=== PATIENT | female | born 1990 | race Caucasian/White ===

== ENCOUNTER 2019-04-09 16:23 | Outpatient (REF) | payer MEDICAID, SELFPAY ==
[2019-04-09 17:15] LABS: Abs Immature Grans 0.03 k/cumm (0.0-0.09); Absolute Basophil Count 0.01 k/cumm (0.0-0.2); Absolute Eosinophil Count 0.19 k/cumm (0.0-0.7); Absolute Lymphocyte Count 2.73 k/cumm (1.2-3.4); Absolute Monocyte Count 0.65 k/cumm (0.11-0.7); Absolute Neutrophil Count 4.21 k/cumm (1.2-6.7); Basophils % 0.1; Eosinophils % 2.4; HGB 13.3 g/dL (12.0-15.5); Immature Grans % 0.4; Lymphocytes % 34.9; Mean Corp. HGB Concentration 31.7 g/dL (32.0-36.0); Mean Corpuscular Hemoglobin 28.5 pg (27.0-33.0); Mean Corpuscular Volume 90.1 fL (80-95); Mean Platelet Volume 9.9 fL (8.0-11.0); Monocytes % 8.3; Neutrophils % 53.9; Platelet Count 335 x1000/uL (130-400); RBC 4.66 m/cumm (4.00-5.20); White Blood Cell Count 7.82 k/cumm (4.4-10.8)
[2019-04-09 17:50] LABS: ALT 33 U/L (14-59); AST 18 U/L (15-37); Albumin 4.1 g/dL (3.4-5.0); Alkaline Phosphatase 78 U/L (46-116); Anion Gap 7.2 mmol/L (3-11); BUN 8 mg/dL (7-18); Bilirubin, Total 0.2 mg/dL (0.2-1.0); CO2 30.8 mmol/L (21.0-32.0); Calcium 9.2 mg/dL (8.5-10.1); Chloride 101 mmol/L (98-107); Glucose 76 mg/dL (74-106); Potassium 4.6 mmol/L (3.5-5.1); Sodium 139 mmol/L (136-145); TSH 1.23 uIU/mL (0.36-3.74); Total Protein 7.3 g/dL (6.4-8.2); Vitamin B12 916 pg/mL (193-986)
[2019-04-09 18:30] LABS: Vitamin D 25 Total 26.9 ng/ml (30-100)
== END 2019-04-09 16:43 ==
LOC: NCHCN 16:23
PROVIDERS: PCP Family Medicine; Visit Provider Nurse Practitioner Family
DX: F41.1 Generalized anxiety disorder (principal); F41.8 Other specified anxiety disorders; F11.21 Opioid dependence, in remission
CPT/HCPCS: 80053; 82306; 82607; 84443; 85025

== ENCOUNTER 2019-05-20 18:09 | Outpatient (REF) | payer MEDICAID, SELFPAY | END 2019-05-20 18:29 | LOC: NCHCN 18:09 | PROVIDERS: PCP Family Medicine; Visit Provider Nurse Practitioner Family | DX: R30.0 Dysuria (principal) | CPT/HCPCS: 87086 ==

== ENCOUNTER 2019-09-11 14:46 | Emergency (ER) | payer MEDICAID, SELFPAY ==
[2019-09-11 14:50] VITALS: BP 128/58; PULSE 85; RESP 18; TEMP 36.7; O2SAT 97
--- NOTE | 2019-09-11 15:00 | DI.CT_ITS ---
EXAM: CT RENAL COLIC WO CLINICAL HISTORY: LEFT FLANK PAIN, VOMITING. TECHNIQUE: Imaging Protocol: Axial computed tomography images with coronal and sagittal reformatted images were created and reviewed. COMPARISON: No exams were available for comparison FINDINGS: ABDOMEN: Lung Bases: Normal where visualized. Liver: Unremarkable where visualized. No measurable mass. Gallbladder and biliary tract: No radiodense calculus or biliary ductal dilation. Pancreas: Normal density, no abnormal calcifications or inflammatory process. Spleen: Normal. Kidneys: Normal size, contour and axis. No radiodense stones or obstructive uropathy. No masses seen. Adrenal glands: No masses seen. Lymph nodes: Within normal limits. Abdominal Aorta: Abdominal portion non-dilated. PELVIS: Bladder: Symmetric distention, no gross wall thickening. Bowel: No obstruction or bowel wall thickening. The appendix is normal in size without evidence of ad jacent mesenteric fat stranding or adjacent fluid collection. There is a large amount of stool throu ghout the colon. Peritoneal cavity: No ascites, collection or mesenteric inflammatory response. Reproductive organs: Within normal limits. Note is made of an intrauterine device in position. Bones: Within normal limits. Soft Tissues: Within normal limits. IMPRESSION: No evidence of nephrolithiasis or obstructive uropathy. Large amount of retained stool. These findings were discussed with the Emergency Department on the date of the examination. RADIATION DOSE DELIVERED: Total DLP DATA REPOSITORY: All CT scans at this facility are submitted to the National Radiology Data Registry (NRDR) Dose Index Registry (DIR) with the [employer] ([employer]). RADIATION OPTIMIZATION: All CT scans at this facility use at least one of these dose optimization te chniques: automated exposure control; mA and/or kV adjustment per patient size (includes targeted exa ms where dose is matched to clinical indication); or iterative reconstruction.
[2019-09-11 15:03] LABS: Bilirubin Negative (Negative); Blood Negative (Negative); Clarity Sl Cloudy (Clear); Glucose Negative (Negative); Ketones Negative (Negative); Leukocyte Esterase Negative (Negative); Nitrite Negative (Negative); Specific Gravity 1.015 (1.005-1.025); Urobilinogen 0.2 EU/dL (Up TO 0.2); pH 8.5 (5-8)
[2019-09-11 15:23] LABS: Abs Immature Grans 0.05 k/cumm (0.0-0.09); Absolute Basophil Count 0.01 k/cumm (0.0-0.2); Absolute Eosinophil Count 0.56 k/cumm (0.0-0.7); Absolute Lymphocyte Count 2.63 k/cumm (1.2-3.4); Absolute Monocyte Count 0.91 k/cumm (0.11-0.7); Absolute Neutrophil Count 7.97 k/cumm (1.2-6.7); Basophils % 0.1; Eosinophils % 4.6; HCT 40.4 % (36.0-46.0); HGB 12.8 g/dL (12.0-15.5); Immature Grans % 0.4 %; Lymphocytes % 21.7; Mean Corp. HGB Concentration 31.7 g/dL (32.0-36.0); Mean Corpuscular Hemoglobin 29.3 pg (27.0-33.0); Mean Corpuscular Volume 92.4 fL (80-95); Mean Platelet Volume 9.6 fL (8.0-11.0); Monocytes % 7.5; Neutrophils % 65.7; Platelet Count 322 x1000/uL (130-400); RBC 4.37 m/cumm (4.00-5.20); RBC Distribution Width 14.2 % (11.7-14.6); White Blood Cell Count 12.13 k/cumm (4.4-10.8)
[2019-09-11 15:28] LABS: Anion Gap 5.5 mmol/L (3-11); BUN 8 mg/dL (7-18); CO2 31.5 mmol/L (21.0-32.0); CREATININE 0.83 mg/dL (0.55-1.02); Calcium 8.9 mg/dL (8.5-10.1); Chloride 101 mmol/L (98-107); Glucose 82 mg/dL (74-106); Potassium 3.8 mmol/L (3.5-5.1); Sodium 138 mmol/L (136-145)
--- NOTE | 2019-09-11 15:45 | W.ED.GENAD ---
Discharge Plan Disposition Patient Disposition: HOME Condition: Stable Discharge Details Chief Complaint: FlankPain Clinical Impression: Constipation, Dental caries Primary Care Provider: Sasha Rios ED Provider: Kaycee Gutierrez Home Meds and New Rx's Prescriptions: New polyethylene glycol 3350 [Miralax] 17 gram/dose powder 17 gm PO DAILY Qty: 119 RF: 0 Continued sertraline [Zoloft] 100 mg Tablet 100 mg DAILY RF: 0 trazodone 100 mg Tablet 100 mg PO DAILY RF: 0 methadone 10 mg/mL Concentrate 90 mg DAILY RF: 0 Discharge Instructions Instructions: Constipation (ED), Dental Caries (ED) Additional Instructions: Your CT of your abdomen showed no kidney stones, you have no UTI. You do have moderate constipation. Increase oral fluids increase fiber. You do still need to see a dentist if possible. Your labs are largely within normal limits. Follow up with primary care provider in 3-5 days. Return to ED sooner if any worsening or concerns. Increase oral fluids. Please take Tylenol or Ibuprofen with food every 4-6 hours as needed for pain and swelling. Referrals: Sasha Rios [Primary Care Provider] - Medical Decision Making 29-year-old female presents with left-sided flank pain which began 2 days ago. She also reports dysuria and 2 episodes of vomiting which began this morning. She reports having dental pain for a week due to poor dentition. She was recently on antibiotics for dental infection in July. She denies fever chills. She denies any abnormal vaginal discharge or bleeding. She does have a history of constipation doing due to being on methadone. CBC and BMP ordered,and urinalysis. They are largely within normal limits. There is a slight leukocytosis of a WBC count of 12.3 which could be due to her dental caries. CT abdomen pelvis without contrast ordered to rule out pyelonephritis, or nephrolithiasis. IMPRESSION: No evidence of nephrolithiasis or obstructive uropathy. Large amount of retained stool. These findings were discussed with the Emergency Department on the date of the examination. CT shows moderate constipation. Patient was given Toradol 30 mg, Zofran 4 mg IV, and 1 L normal saline while in department which improved her symptoms. Prescription written for MiraLAX daily laxative and instructed on increasing fluids and increasing fiber. Patient was given dental resources and instructed that she does not still need to see a dentist. Verbalized understanding. Differential diagnosis includes but not limited to gastroenteritis, small bowel obstruction, kidney stone, pyelonephritis, UTI, STD, constipation This text was generated using Twoodoation system, please disregard any oddities of phrase or misspellings. HPI General Mode of arrival: ambulatory. Date/Time Provider Initiated Documentation: 09/11/19 14:49. Limitations to Documentation: no limitations. Information obtained by: patient. HPI Narrative: 29-year-old female presents with left-sided flank pain which began 2 days ago. She also reports dysuria and 2 episodes of vomiting which began this morning. She reports having dental pain for a week due to poor dentition. She was recently on antibiotics for dental infection in July. She denies fever chills. She denies any abnormal vaginal discharge or bleeding. She does have a history of constipation doing due to being on methadone. Related Data Home Medications Medication Instructions Recorded Confirmed methadone 90 mg DAILY 09/11/19 09/11/19 polyethylene glycol 3350 [Miralax] 17 gm PO DAILY #119 gm 09/11/19 sertraline [Zoloft] 100 mg DAILY 09/11/19 09/11/19 trazodone 100 mg PO DAILY 09/11/19 09/11/19 Previous Rx's Medication Instructions Recorded polyethylene glycol 3350 [Miralax] 17 gm PO DAILY #119 gm 09/11/19 Allergies Allergy/AdvReac Type Severity Reaction Status Date / Time amoxicillin Allergy Intermediate Hives Unverified 09/11/19 14:55 General Stated Complaint: [employer] SHIV: 3 Review of Systems Narrative: Constitutional: Negative for weight loss, alert and oriented, well groomed, normal body habitus, appears comfortable. HEENT: Denies trauma, headaches, blurry vision, nasal discharge, sore throat, trouble swallowing. Chest: Denies chest pain, palpitations, irregular rhythm, hypertension. Respiratory: Denies Shortness of breath, cough, hemoptysis. GI: Denies positive left-sided flank pain and left upper quadrant pain, nausea vomiting, no diarrhea, no constipation. : Denies , hematuria, rectal bleeding. Positive dysuria, positive flank pain. Neuro: Denies dizziness, blurry vision, weakness, syncope, headache or facial numbness. Hematologic: Denies easy bruising, intolerance to heat or cold, hair loss. [facility] Social History Smoking/Tobacco Use Status: Current every day Tobacco Type: cigarettes Alcohol Intake: current Alcohol Intake frequency: holidays/special occasions only Drug use: Current Sobriety Substance use type: former substance user Do you feel safe at home: Yes Do you feel safe in your relationship?: Yes Exam Narrative Exam Narrative: Constitutional: Alert and oriented x3. Appears stated age. Normal body habitus. Head: Normocephalic, no trauma. Eyes: Pupils PERRLA, Red reflex noted, EOM's intact. Eyelids symmetrical without lesions, discharge, or swelling. ENT: Bilateral TM's WNL, External ear normal to inspection, no mastoid TTP, swelling, or erythema, Nasal turbinates WNL, no nasal discharge. poor dentition she does have gingival swelling and erythema, no abscess no drainage. This appears chronic. posterior pharynx WNL, no exudate. Chest: RRR, Normal S1, S2, distal pulses intact. Abdomen: Abdomen appears distended but is soft, mild left upper quadrant TTP. Hypoactive bowel sounds. Resp: Lungs clear to auscultation bilaterally, no wheezes, rales, or rhonchi. Musculoskeletal: Normal gait, 5/5 strength to all four extremities. Skin: No suspicious rashes or lesions. Capillary refill less than 2 sec. Neurologic: Cranial nerves II-XII intact. Alert and oriented x 3. DTR's intact. Hematologic/Lymphatic: No ecchymosis, no lymphadenopathy. Course Vital Signs Vital signs: Vital Signs Temperature 36.7 C 09/11/19 14:50 Pulse 85 09/11/19 14:50 Respiratory Rate 18 09/11/19 14:50 Blood Pressure 128/58 L 09/11/19 14:50 Pulse Oximetry 97 09/11/19 14:50 Temperature 36.7 C 09/11/19 14:50 Temperature Source Temporal Artery Scan 09/11/19 14:50 Pulse 85 09/11/19 14:50 Respiratory Rate 18 09/11/19 14:50 Respiratory Effort Non-Labored 09/11/19 14:59 Blood Pressure 128/58 L 09/11/19 14:50 Blood Pressure Position Sitting 09/11/19 14:50 Pulse Oximetry 97 09/11/19 14:50 Oxygen Delivery Method Room Air 09/11/19 14:50 Oxygen Flow Rate 0 09/11/19 14:50 Pain Level 4 09/11/19 15:08 Lab/Test Results Lab/Test Results: Laboratory Tests Range/Units 09/11/19 09/11/19 15:00 15:00 WBC (4.4-10.8) k/cumm 12.13 H RBC (4.00-5.20) m/cumm 4.37 Hgb (12.0-15.5) g/dL 12.8 Hct (36.0-46.0) % 40.4 MCV (80-95) fL 92.4 MCH (27.0-33.0) pg 29.3 MCHC (32.0-36.0) g/dL 31.7 L RDW (11.7-14.6) % 14.2 Plt Count (130-400) x1000/uL 322 MPV (8.0-11.0) fL 9.6 Immature Gran % % 0.4 Neutrophils % 65.7 Lymphocytes % 21.7 Monocytes % 7.5 Eosinophils % 4.6 Basophils % 0.1 Absolute Neutrophils (1.2-6.7) k/cumm 7.97 H Absolute Lymphocytes (1.2-3.4) k/cumm 2.63 Absolute Monocytes (0.11-0.7) k/cumm 0.91 H Absolute Eosinophils (0.0-0.7) k/cumm 0.56 Absolute Basophils (0.0-0.2) k/cumm 0.01 Urine Color (Yellow) Yellow Urine Clarity (Clear) Sl cloudy Urine pH (5-8) 8.5 H Ur Specific [place] (1.005-1.025) 1.015 Urine Protein (Negative) mg/dL Negative Urine Ketones (Negative) mg/dL Negative Urine Blood (Negative) Negative Urine Nitrite (Negative) Negative Urine Bilirubin (Negative) Negative Urine Urobilinogen (Up TO 0.2) EU/dL 0.2 Ur Leukocyte Esterase (Negative) Negative Urine Glucose (Negative) mg/dL Negative POC Urine Test Start: 09/11/19 15:02 Freq: Status: Complete Protocol: Document 09/11/19 15:03 MP (Rec: 09/11/19 15:03 MP [email or web address]) Test(Urine)-POC POC- Test(urine) Negative POC- Test(urine) Negative
[2019-09-11] MEDS: Normal Saline Flush 10 ML SYR IVP (16:00)
[2019-09-11] MEDS: Ondansetron 4 MG/2 ML VIAL IVP (16:00)
[2019-09-11] MEDS: Ketorolac 30 MG/ML VIAL IVP (16:00)
[2019-09-11] MEDS: Normal Saline 1,000 ML 1000 ML IV (16:01)
== END 2019-09-11 16:20 | disposition home or self-care (01) ==
LOC: ER 16:24
PROVIDERS: Emergency Provider Registered Nurse Emergency; PCP Family Medicine
DX: K59.09 Other constipation (principal); K02.9 Dental caries, unspecified; F11.90 Opioid use, unspecified, uncomplicated
CPT/HCPCS: 80048; 81025; 96374; 96375; 99285; 74176; 81003; 85025; 99284; J1885; J2405

== ENCOUNTER 2019-11-14 07:46 | Outpatient (CLI) | payer MEDICAID, SELFPAY | END 2019-11-14 08:06 | PROVIDERS: PCP Family Medicine; Visit Provider Family Medicine | DX: Z11.59 Encounter for screening for other viral diseases (principal) | CPT/HCPCS: U0003 ==

== ENCOUNTER 2019-11-18 12:51 | Outpatient (CLI) | payer MEDICAID, SELFPAY ==
[2019-11-19 12:07] LABS: COVID-19 RT-PCR UVMMC Result Negative (Negative)
== END 2019-11-18 13:11 ==
PROVIDERS: PCP Family Medicine; Visit Provider Family Medicine
DX: Z11.59 Encounter for screening for other viral diseases (principal)
CPT/HCPCS: U0003

== ENCOUNTER 2020-01-05 08:44 | Outpatient (REF) | payer MEDICAID, SELFPAY ==
--- NOTE | 2020-01-05 07:50 | PAPFT_PTH ---
PATIENT: Janki Mei LOC: [facility]#:[id number] AGE/SX: 29/F ROOM: RE01/05/[address]: Gris Kauffman : 1990 BED: DIS: 01/05/2020 SPEC #: [id number] RECD: 01/06/20 12:49 STATUS: GABRIELA RESusan #: [id number] KWABENA: 01/05/20 07:[address]: Gris Kauffman DEPT: [facility] Cytology RECD BY: Jasmin Herrera ENTERED: 01/06/20 12:50 SP TYPE: PAPFT OTHR DR: Sasha Rios Tissues: 1 - CX/ENDOCX FOR PAP SMEARS Procedures: PAP THIN PREP/[facility] Screening Comments: [id number] (CHLAMYDIA/GC)
[2020-01-07 11:53] LABS: Chlamydia Result Negative (Negative); GC Result Negative (Negative)
== END 2020-01-05 09:04 ==
LOC: NCHCN 08:44
PROVIDERS: PCP Family Medicine; Visit Provider Nurse Practitioner Family
DX: Z11.3 Encounter for screening for infections with a predominantly sexual mode of transmission (principal); Z12.4 Encounter for screening for malignant neoplasm of cervix
CPT/HCPCS: 87491; 87591; 88142

== ENCOUNTER 2020-03-09 14:10 | Outpatient (REF) | payer MEDICAID, SELFPAY ==
[2020-03-13 11:26] LABS: Patient Race White; SARS-CoV-2 RNA Undetected (Undetected); SARS-CoV-2 Specimen Source Nasal
== END 2020-03-09 14:30 ==
LOC: NCHCN 14:10
PROVIDERS: PCP Family Medicine; Visit Provider Nurse Practitioner Family
DX: R09.81 Nasal congestion (principal); J02.9 Acute pharyngitis, unspecified
CPT/HCPCS: U0003

== ENCOUNTER 2021-04-29 14:46 | Outpatient (REF) | payer MEDICAID, SELFPAY ==
[2021-04-29 14:48] LABS: Abs Immature Grans 0.03 10^3/uL (0.0-0.06); Absolute Basophil Count 0.03 10^3/uL (0.0-0.2); Absolute Eosinophil Count 0.13 10^3/uL (0.0-0.7); Absolute Lymphocyte Count 2.68 10^3/uL (1.2-3.4); Absolute Monocyte Count 0.45 10^3/uL (0.1-0.8); Absolute Neutrophil Count 6.93 10^3/uL (1.2-6.7); Basophils % 0.3; Eosinophils % 1.3; HGB 14.2 g/dL (11.2-15.7); Immature Grans % 0.3; Lymphocytes % 26.1; MCH 28.9 pg (27.0-33.0); MCHC 32.3 % (32.0-36.0); MCV 89.4 fL (80-95); MPV 10.4 fL (8.0-11.0); Monocytes % 4.4; Neutrophils % 67.6; Nucleated RBC 0 %; Platelet Count 323 10^3/uL (130-400); RBC 4.92 10^6/uL (3.93-5.22); RDW 12.9 % (11.7-14.6); RDW-SD 42.5 fL; WBC 10.25 10^3/uL (4.4-10.8)
[2021-04-29 14:59] LABS: ALT 52 U/L (14-59); AST 21 U/L (15-37); Albumin 4.2 g/dL (3.4-5.0); Alkaline Phosphatase 111 U/L (46-116); Anion Gap 9.5 mmol/L (3-11); BUN 11 mg/dL (7-18); Bilirubin, Total 0.4 mg/dL (0.2-1.0); CO2 26.5 mmol/L (21.0-32.0); Calcium 9.5 mg/dL (8.5-10.1); Chloride 105 mmol/L (98-107); Glucose 103 mg/dL (74-106); Potassium 4.1 mmol/L (3.5-5.1); Sodium 141 mmol/L (136-145); Total Protein 7.4 g/dL (6.4-8.2)
== END 2021-04-29 14:47 | disposition home or self-care (01) ==
LOC: NCHCN 14:46
PROVIDERS: PCP Family Medicine; Visit Provider Family Medicine
DX: R31.9 Hematuria, unspecified (principal); K92.1 Melena
CPT/HCPCS: 80053; 87077; 85025; 87086; 87186

== ENCOUNTER 2022-05-22 21:35 | Outpatient (REF) | payer MEDICAID, SELFPAY ==
[2022-05-22 22:04] LABS: ALT 36 U/L (14-59); AST 27 U/L (15-37); Albumin 4.4 g/dL (3.4-5.0); Alkaline Phosphatase 116 U/L (46-116); Anion Gap 6.7 mmol/L (3-11); BUN 12 mg/dL (7-18); Bilirubin, Total 0.3 mg/dL (0.2-1.0); CO2 30.3 mmol/L (21.0-32.0); CREATININE 0.9 mg/dL (0.55-1.02); Calcium 9.4 mg/dL (8.5-10.1); Chloride 101 mmol/L (98-107); Glucose 89 mg/dL (74-106); Lipase 39 U/L (73-393); Potassium 4.9 mmol/L (3.5-5.1); Sodium 138 mmol/L (136-145); TSH 1.66 uIU/mL (0.36-3.74)
[2022-05-23 18:53] LABS: Prolactin 4.7 ng/mL (See Note)
== END 2022-05-22 21:36 | disposition home or self-care (01) ==
LOC: NCHCN 21:35
PROVIDERS: PCP Family Medicine; Visit Provider Nurse Practitioner Family
DX: R11.10 Vomiting, unspecified (principal); K59.09 Other constipation; R10.9 Unspecified abdominal pain
CPT/HCPCS: 80053; 83690; 84146; 84443

== ENCOUNTER 2022-06-19 17:05 | Outpatient (REF) | payer MEDICAID, SELFPAY ==
[2022-06-22 13:43] LABS: Helicobacter pylori Ag, Feces Negative (Negative)
== END 2022-06-19 17:06 | disposition home or self-care (01) ==
LOC: NCHCN 17:05
PROVIDERS: PCP Family Medicine; Visit Provider Nurse Practitioner Family
DX: R11.10 Vomiting, unspecified (principal); R10.9 Unspecified abdominal pain
CPT/HCPCS: 87338

== ENCOUNTER 2022-10-03 17:51 | Outpatient (REF) | payer MEDICAID, SELFPAY ==
--- NOTE | 2022-10-03 15:30 | PAPFT_PTH ---
PATIENT: Janki Mei LOC: [facility]#:[id number] AGE/SX: 32/F ROOM: RE10/03/[address]: So Perkins : 1990 BED: DIS: 10/03/2022 SPEC #: [id number] RECD: 10/04/22 13:14 STATUS: GABRIELA RESusan #: [id number] KWABENA: 10/03/22 15:[address]: So Perkins DEPT: [facility] Cytology RECD BY: Jasmin Herrera ENTERED: 10/04/22 13:14 SP TYPE: PAPFT OTHR DR: Sasha Rios Tissues: 1 - CX/ENDOCX FOR PAP SMEARS Procedures: PAP THIN PREP/[facility] Screening HPV DNA PROBE Comments: [id number] (CHLAMYDIA/GC)
[2022-10-05 16:18] LABS: Chlamydia Result Negative (Negative); GC Result Negative (Negative)
== END 2022-10-03 17:52 | disposition home or self-care (01) ==
LOC: NCHCN 17:51
PROVIDERS: PCP Family Medicine; Visit Provider Nurse Practitioner Family
DX: Z11.3 Encounter for screening for infections with a predominantly sexual mode of transmission (principal); Z12.4 Encounter for screening for malignant neoplasm of cervix; Z11.51 Encounter for screening for human papillomavirus (HPV)
CPT/HCPCS: 87491; 87591; 88142; 87624